=== PATIENT | female | born 1955 | race African-American/Black ===

== ENCOUNTER → 2019-12-07 | Day surgery (SDC) | payer MEDICARE, BC, OTHER ==
[~2019-12-07] MED LIST: ASPIR 8181 MG PO; BENICAR20 MG PO; CALCIUM PO; COD LIVER OIL1 EAC1 PO; FENTANYL CITRATE/PF 100MCG/2 ML INJ ONE; FOLIC ACID PO; HYDROCHLOROTHIA25 MG PO; METHOTREXATE2.5 MG PO; MIDAZOLAM HCL 2 MG/2 ML VIAL ONE; OR PHACO EYE KIT ONE; PREOP PHACO EYE KIT ONE; VITAMIN D33000 UNIT PO
[2019-12-07 11:30] VITALS: BP 152/77
== END | disposition home or self-care (01) ==
LOC: OR 07:58
PROVIDERS: ATTEND Ophthalmology
DX: H25.11 Age-related nuclear cataract, right eye (principal); M19.90 Unspecified osteoarthritis, unspecified site; I10 Essential (primary) hypertension; R00.1 Bradycardia, unspecified; Z88.0 Allergy status to penicillin; Z01.810 Encounter for preprocedural cardiovascular examination; Z79.82 Long term (current) use of aspirin
CPT/HCPCS: 66984; 93005; J2250; J3010

== ENCOUNTER → 2019-12-21 | Day surgery (SDC) | payer MEDICARE, BC, OTHER ==
[2019-12-14 11:58] LABS: BASOPHILS % 0.4 % (0.0-1.0); EOSINOPHILS # (AUTO) 0.2 (0.0-0.4); EOSINOPHILS % 2.1 % (0.0-6.0); HEMOGLOBIN 11.8 g/dL (12.0-16.0); LYMPHOCYTES # (AUTO) 2.3 (1.0-3.2); LYMPHOCYTES % 27.2 % (18.0-39.1); MEAN CORPUSCULAR HEMOGLOBIN 29.8 pg (28-32); MEAN CORPUSCULAR HGB CONC 31.9 g/dL (31-35); MEAN CORPUSCULAR VOLUME 93.4 fL (81-99); MONOCYTES # (AUTO) 0.8 (0.2-0.8); MONOCYTES % 9.1 % (4.4-11.3); NEUTROPHILS # (AUTO) 5.2 (2.1-6.9); NEUTROPHILS % 60.6 % (38.7-80.0); PLATELET COUNT 269 x10e3/uL (140-360); RED BLOOD COUNT 3.96 x10e6/uL (3.6-5.1); RED CELL DISTRIBUTION WIDTH 14.4 % (11.7-14.4)
[2019-12-21 14:30] VITALS: BP 160/80
== END | disposition home or self-care (01) ==
LOC: OR 11:45
PROVIDERS: ATTEND Ophthalmology
DX: H25.12 Age-related nuclear cataract, left eye (principal); I10 Essential (primary) hypertension; Z79.82 Long term (current) use of aspirin; Z01.812 Encounter for preprocedural laboratory examination
CPT/HCPCS: 36415; 66984; 85025; J2250; J3010; V2632